=== PATIENT | female | born 1940 | race Caucasian/White ===

== ENCOUNTER → 2018-04-29 | Outpatient (CLI) | payer MEDICARE ==
[2015-07-11 10:59] VITALS: BMI 28.8
[~2018-04-29] MED LIST: ASPI-1471 PO; ASPI-757 PO; ATOR20TA65 PO; CALC-18 PO; CLOP75TA43 PO; GLUC100026 PO; LISI-362 PO; METO25TA93 PO; NAPR220C12 PO; NIT4 SL; PANT40TA65 PO; SUCR1TAB51 PO; ZOLP-358 PO
[2018-04-29 14:08] LABS: LDL CHOLESTEROL 49 mg/dl
== END ==
LOC: LAB 13:30
PROVIDERS: ATTEND Internal Medicine Cardiovascular Disease
DX: I25.10 Atherosclerotic heart disease of native coronary artery without angina pectoris (principal); I10 Essential (primary) hypertension
CPT/HCPCS: 36415; 82310; 82374; 82435; 82465; 82565; 82947; 83718; 84132; 84295; 84478; 84520